=== PATIENT | female | born 1980 | race African-American/Black ===

== ENCOUNTER → 2016-12-23 | Outpatient (CLI) | payer OTHER ==
--- NOTE | 2016-12-23 09:50 | KCIC ---
EXAM: Chest, single view. HISTORY: Positive tuberculin reactor. COMPARISON: None. FINDINGS: A frontal view of the chest is obtained. There is no infiltrate, effusion or pneumothorax. The cardiac silhouette is upper normal in size. IMPRESSION: No acute pulmonary finding or evidence of pulmonary tuberculosis. Electronically signed by: Andressa Isaac MD (12/23/2016 9:47 AM) [id number]
== END | disposition home or self-care (01) ==
LOC: KCIC 09:14
PROVIDERS: ATTEND Family Medicine
DX: R76.11 Nonspecific reaction to tuberculin skin test without active tuberculosis (principal)
CPT/HCPCS: 71010